=== PATIENT | female | born 1955 | race Caucasian/White ===

== ENCOUNTER → 2017-06-30 12:10 | Outpatient (CLI) | payer OTHER, SELFPAY ==
[2017-06-30 12:59] LABS: Alanine Aminotransferase 48 U/L (12-78); Albumin Level 4.5 gm/dL (3.4-5.0); Albumin/Globulin Ratio 1.1 (1.1-1.8); Alkaline Phosphatase 103 U/L (46-116); Aspartate Amino Transferase 32 U/L (15-37); Bilirubin,Total 0.6 mg/dL (0.2-1.0); Blood Urea Nitrogen 21 mg/dL (7-18); Calcium 10.3 mg/dL (8.5-10.1); Carbon Dioxide 31 mmol/L (21.0-32.0); Chloride 102 mmol/L (98-107); Chol/HDL Ratio 5.5 (1-3.5); Cholesterol 221 mg/dL (140-200); Creatinine,Serum 0.79 mg/dL (0.55-1.02); Estimated Glomerular Filt Rate 74 ml/min (>60); GFR (African American) 89 ML/MIN (>60); Globulin 4.2 gm/dl (1.3-3.2); Glucose 98 mg/dL (74-106); HDL Cholesterol 40 mg/dL (29-89); LDL Cholesterol 144 mg/dL (0-130); Sodium 142 mmol/L (136-145); Total Protein,Serum 8.7 gm/dL (6.4-8.2); Triglycerides 186 mg/dL (30-200); VLDL Cholesterol 37 mg/dL (0-40)
== END ==
PROVIDERS: Visit Provider Internal Medicine Adolescent Medicine
DX: E78.5 Hyperlipidemia, unspecified (principal)
CPT/HCPCS: 36415; 80053; 80061

== ENCOUNTER → 2018-11-20 12:20 | Outpatient (CLI) | payer OTHER, SELFPAY ==
--- NOTE | 2018-11-20 12:24 | XR_ITS ---
PROCEDURE: XR ELBOW RT MIN 3V CLINICAL INDICATION: right radial head fracture follow up Follow-up fracture COMPARISON: XR ELBOW RT MIN 3V from 11/09/2018 FINDINGS: Minimally displaced radial neck and head fracture with intra-articular involvement is once again noted. Posterior splint is present. IMPRESSION: No change radial neck and head fracture with extension into the articular surface Dictated by: Lenny He MD 11/20/2018 12:51 Signed by: <Electronically signed by Lenny He MD in OV> 11/20/2018 12:51
--- NOTE | 2018-11-20 13:42 | XR_ITS ---
PROCEDURE: XR ELBOW RT MIN 3V CLINICAL INDICATION: radial head fracture; out of splint Follow-up radial head fracture COMPARISON: XR ELBOW RT MIN 3V from 11/09/2018 FINDINGS: The splint has been removed. There remains good alignment of the minimally depressed radial head fracture which involves the radial head extending into the as well as the neck of the radius IMPRESSION: Interval removal of the splint otherwise no change in the minimally depressed radial head fracture Dictated by: Lenny He MD 11/20/2018 17:19 Signed by: <Electronically signed by Lenny He MD in OV> 11/20/2018 17:19
== END ==
PROVIDERS: PCP Family Medicine; Visit Provider Orthopaedic Surgery
DX: S52.121A Displaced fracture of head of right radius, initial encounter for closed fracture (principal)
CPT/HCPCS: 73080

== ENCOUNTER → 2018-12-11 12:54 | Outpatient (CLI) | payer OTHER, SELFPAY ==
--- NOTE | 2018-12-11 12:58 | XR_ITS ---
PROCEDURE: XR ELBOW RT MIN 3V CLINICAL INDICATION: follow up right radial head fracture Follow-up fracture, pain COMPARISON: XR ELBOW RT MIN 3V from 11/09/2018 XR ELBOW RT MIN 3V from 11/20/2018 XR ELBOW RT MIN 3V from 11/20/2018 FINDINGS: Minimally depressed fracture involves the radial head with minimal depression of the lateral fracture fragment. Fracture line is somewhat less apparent than when compared to 11/20/2018. No other significant anomalies are evident. Other findings:None. IMPRESSION: Healing minimally depressed fracture of the radial head Dictated by: Lenny He MD 12/11/2018 16:05 Electronically signed by Lenny He MD in OV 12/11/2018 16:05
== END ==
PROVIDERS: PCP Family Medicine; Visit Provider Orthopaedic Surgery
DX: S52.124A Nondisplaced fracture of head of right radius, initial encounter for closed fracture (principal)
CPT/HCPCS: 73080

== ENCOUNTER → 2020-08-07 17:58 | Outpatient (CLI) | payer MEDICARE, OTHER, SELFPAY ==
[2020-08-07 18:32] LABS: Alanine Aminotransferase 48 U/L (12-78); Albumin Level 4.8 g/dl (3.5-5.0); Albumin/Globulin Ratio 1.5 (1.1-1.8); Alkaline Phosphatase 101 U/L (38-126); Anion Gap 12.9 mEq/L (5-15); Aspartate Amino Transferase 48 U/L (14-36); Bilirubin,Total 0.6 mg/dl (0.2-1.3); Blood Urea Nitrogen 26 mg/dl (7-17); Carbon Dioxide 30 mmol/L (22.0-30.0); Chloride 101 mmol/L (98-107); Chol/HDL Ratio 5.4 (1-3.5); Cholesterol 198 mg/dl (140-200); Estimated Glomerular Filt Rate 84 ml/min (>60); GFR (African American) 101 ML/MIN (>60); Globulin 3.1 g/dL (1.3-3.2); Glucose 68 mg/dl (74-100); HDL Cholesterol 37 mg/dl (40-60); Potassium 3.9 mmoL/L (3.5-5.1); Sodium 140 mmol/L (136-145); Total Protein,Serum 7.9 g/dl (6.3-8.2); Triglycerides 260 mg/dl (30-150); VLDL Cholesterol 52 mg/dL (0-40)
[2020-08-07 18:42] LABS: Direct LDL Cholesterol 80.79 mg/dL (100-129)
== END ==
PROVIDERS: Visit Provider Nurse Practitioner Family
DX: Z00.00 Encounter for general adult medical examination without abnormal findings (principal); I10 Essential (primary) hypertension; E78.5 Hyperlipidemia, unspecified
CPT/HCPCS: 80053; 80061

== ENCOUNTER → 2020-11-07 10:13 | Outpatient (CLI) | payer MEDICARE, OTHER, SELFPAY ==
[2020-11-07 11:41] LABS: Alanine Aminotransferase 42 U/L (12-78); Albumin Level 4.5 g/dl (3.5-5.0); Albumin/Globulin Ratio 1.5 (1.1-1.8); Alkaline Phosphatase 98 U/L (38-126); Anion Gap 15.3 mEq/L (5-15); Aspartate Amino Transferase 44 U/L (14-36); Bilirubin,Total 0.8 mg/dl (0.2-1.3); Blood Urea Nitrogen 27 mg/dl (7-17); Calcium 9.6 mg/dl (8.4-10.2); Carbon Dioxide 29 mmol/L (22.0-30.0); Chloride 102 mmol/L (98-107); Chol/HDL Ratio 5.1 (1-3.5); Cholesterol 182 mg/dl (140-200); Estimated Glomerular Filt Rate 63 ml/min (>60); GFR (African American) 76 ML/MIN (>60); Globulin 3.1 g/dL (1.3-3.2); Glucose 88 mg/dl (74-100); HDL Cholesterol 36 mg/dl (40-60); Potassium 4.3 mmoL/L (3.5-5.1); Sodium 142 mmol/L (136-145); Total Protein,Serum 7.6 g/dl (6.3-8.2); Triglycerides 217 mg/dl (30-150); VLDL Cholesterol 43 mg/dL (0-40)
[2020-11-07 11:51] LABS: Direct LDL Cholesterol 85.33 mg/dL (100-129)
== END ==
PROVIDERS: Visit Provider Nurse Practitioner Family
DX: Z00.00 Encounter for general adult medical examination without abnormal findings (principal); I10 Essential (primary) hypertension; E78.5 Hyperlipidemia, unspecified
CPT/HCPCS: 80053; 80061

== ENCOUNTER → 2021-03-11 17:58 | Outpatient (CLI) | payer MEDICARE, OTHER, SELFPAY ==
[2021-03-11 19:26] LABS: Alanine Aminotransferase 39 U/L (12-78); Albumin Level 4.5 g/dl (3.5-5.0); Albumin/Globulin Ratio 1.5 (1.1-1.8); Alkaline Phosphatase 86 U/L (38-126); Anion Gap 11.1 mEq/L (5-15); Aspartate Amino Transferase 43 U/L (14-36); Bilirubin,Total 0.4 mg/dl (0.2-1.3); Blood Urea Nitrogen 27 mg/dl (7-17); Carbon Dioxide 30 mmol/L (22.0-30.0); Chloride 101 mmol/L (98-107); Chol/HDL Ratio 4.1 (1-3.5); Cholesterol 164 mg/dl (140-200); Estimated Glomerular Filt Rate 72 ml/min (>60); GFR (African American) 87 ML/MIN (>60); Glucose 89 mg/dl (74-100); HDL Cholesterol 40 mg/dl (40-60); Potassium 4.1 mmoL/L (3.5-5.1); Sodium 138 mmol/L (136-145); Total Protein,Serum 7.5 g/dl (6.3-8.2); Triglycerides 138 mg/dl (30-150); VLDL Cholesterol 28 mg/dL (0-40)
[2021-03-11 19:37] LABS: Direct LDL Cholesterol 97.66 mg/dL (100-129)
== END ==
PROVIDERS: Visit Provider Nurse Practitioner Family
DX: Z00.00 Encounter for general adult medical examination without abnormal findings (principal); I10 Essential (primary) hypertension; E78.5 Hyperlipidemia, unspecified
CPT/HCPCS: 80053; 80061

== ENCOUNTER → 2022-09-15 15:19 | Outpatient (CLI) | payer MEDICARE, OTHER, SELFPAY ==
--- NOTE | 2022-09-15 15:28 | US_ITS ---
FINAL REPORT CLINICAL HISTORY: ABDOMINAL PAIN-- bladder pain-- hx of renal stones FINDINGS: Limited sonographic images of the urinary bladder were obtained. Prevoid volume is 356 mL. Postvoid volume is 22 mL. There is an echogenic shadowing focus in the dependent portion of the urinary bladder measuring 1 cm in greatest dimension consistent with a stone. IMPRESSION: Stone in the urinary bladder. Postvoid residual of 22 mL. Reviewed, Interpreted and Dictated by Magdaleno Yusuf MD Transcribed by Lynne Hernandez Authenticated and [facility]
--- NOTE | 2022-09-15 15:28 | US_ITS ---
PROCEDURE INFORMATION: Exam: US Retroperitoneal; Complete; Kidneys and Bladder Exam date and time: 09/15/2022 3:58 PM Age: 67 years old Clinical indication: Abdominal pain TECHNIQUE: Imaging protocol: Real-time ultrasound of the retroperitoneum with image documentation. Complete exam focused on the kidneys and bladder. Total images: 50 COMPARISON: US URINARY BLADDER 09/15/2022 3:47 PM FINDINGS: Right kidney: Right kidney measures 8.5 x 4.1 x 6.5 cm. Right renal cyst is present measuring 8 mm. Punctate calcifications noted within the right kidney. Mild right obstructive uropathy. Left kidney: Left kidney measures 9.8 x 4.8 x 5.7 cm. Punctate left renal calcifications present with mild obstructive uropathy. Urinary bladder: Not well seen. IMPRESSION: Bilateral punctate renal calcifications with mild obstructive uropathy.
== END ==
PROVIDERS: PCP Nurse Practitioner Family; Visit Provider Nurse Practitioner Family
DX: R30.0 Dysuria (principal)
CPT/HCPCS: 76770; 76857

== ENCOUNTER 2024-09-17 07:37 | Outpatient (CLI) | payer MEDICARE, OTHER, SELFPAY ==
--- OUTSIDE RECORDS SUMMARY | 2022-10-17 06:55 | XMS_ITS | Continuity of Care Document ---
Author Organization [facility] Address [address] [place] [address] Phone Care Team Providers Care Dairy Farm Operator Name Role Phone Paul MSN, BINDING DYER, Claudia Unavailable Unavai labjenn Allergies, Adverse Reactions, Alerts Substance Reaction Status Criticality No Known Allergies Active No Inform ation Medications Medication Instructions Dosage Effective Dates (start - stop) Status Comments Flomax 0.4 mg capsule take 1 capsule by oral route every day 1/2 hour following the same meal each day 0.4 MG - Active Bactrim DS 800 mg-160 mg tablet take 1 tablet by oral route every 12 hours 1.00 tablet - Active Pyridium 200 mg tablet take 1 tablet by oral route 3 times every day after meals as needed 200 MG - Active atorvastatin 80 mg tablet take 1 tablet by oral route every day 80 MG - Active fenofibrate nanocrystallized 145 mg tablet take 1 tablet by oral route every day 145 MG - Active lisinopril 20 mg-hydrochlorothiazide 25 mg tablet take 1 tablet by oral route every day 1.00 tablet - Active aspirin 81 mg chewable tablet chew 1 tablet by oral route every day 81 MG - Active Multivitamin 50 Plus tablet Take one tablet daily - Active Fish Oil 900 mg-1,400 mg capsule,delayed release Take 2 capsules daily - Active Advance Directives Directive Yes / No Effective Date File Name No Information Encounters Encounter Description Practice Location Reason(s) For Visit Diagnoses Date Provider [facility], [address] [place] [address], [facility], tel:[phone] JULIANO No Information [address] [place], [place], [id number] , . tel:[phone] [facility], [address] [place] [address], [facility], tel:[phone] Renal stoneObstructive uropathy [address] [place], [place], [id number] , [place]. tel:[phone] [facility], [address] [place] [address], [facility], tel:[phone] Abdominal painDysuria [address] [place], [place], [id number] , [place]. tel:[phone] [facility], [address] [place] [address], [facility], tel:[phone] UTI symptoms (chief complaint) Encounter for screening for depressionEncounter for screening examination for other mental health and behavioral disordersBody mass index [BMI] 24.0-24.9, adultEssential (primary) hypertensionHyperlipi demiaDysuriaHematuria , unspecified [address] [place], [place], [id number] , [place]. tel:[phone] Family History Family Member Type Diagnosis Age At Onset Father Problem Hypertension Son Problem Alive and well Father Problem Hyperlipidemia Brother Problem DRUG ADDICTION Mother Problem Hyperlipidemia Maternal grandmother Problem Cardiovascular disea se Son Problem Alive and well Sister Problem Alive and well Son Problem Hypertension Mother Problem Hypertension Daughter Problem Alive and well Immunizations Vaccine Date Status Comments COVID mRNA Bivalent(MOD) administered [place] rce: Other Registry PCV13 administered Source: Other R egistry COVID-19 mRNA (MOD) administered Source: Other Registry Influenza Quad Inj administered Source: O ther Registry COVID-19 mRNA (MOD) administered Source: Other Registry COVID-19 mRNA (MOD) administered Source: Other Registry Zoster Recombinant administered Source: O ther Registry Zoster Recombinant administered Source: O ther Registry Influenza, High Dose administered Source: Other Registry PPV23 administered Source: Other R egistry Hep A, adult administered Source: Other R egistry Tdap, Adsorbed administered Source: Other Registry Hep A, adult administered Source: Other R egistry Td (adult), adsorbed administered Source: Other Registry Payers Payer name Insurance type Covered green party ID Authoriza tiubaldo(s) Hch- Medicare MB [id number] Social History Type Description Quantity Date Captured Comments Alcohol Use Details Unknown Caffeine Use Details Unknown Tobacco Use Status No Information Smoking Status No Information Sex Female Sexual Orientation Straight or heterosexual Aug Gender Identity Female Chief Complaint And Reason For Visit No Information Plan Of Treatment Date Type Action Status Goal Pneumococcal vaccine due Goal Follow up Plan f or abnormal BMI (Less than 18.5, greater than 25). Due on due Goal Generalized Anxi ety Disorder - 7 (MARNI-7). Due on due Goal Influenza vaccine. Due on Oc due Goal CT-Colonography. Due on due Goal FOBT. Due on due Goal FIT. Due on due Goal FIT-DNA. Due on due Goal Diabetes screening. Due on due Goal Tobacco Use Screening. Due o n due Goal Unhealthy drug use screening due Goal Obtain Height, Weight, and B OK. Due on due Goal Tobacco Use Cessation Counse ling. Due on due Goal Colonoscopy. Due on due Goal Depression screening. Due on due Goal Vitamin D. Due on due Goal Vitamin B12. Due on due Goal Drug Abuse Scree manolo Test (DAST-10). Due on due Goal Hepatitis C Screening. Due o n due Goal CMP. Due on due Goal DEXA scan. Due on due Goal Mammogram. Due on due Goal TSH. Due on due Goal CBC. Due on due Goal Lipid panel. Due on due Goal ECG. Due on due Goal Urinalysis due Goal Obtain blood Pressure. Due o n due Goal Pneumococcal vaccine due Goal FIT-DNA. Due on due Goal Hepatitis C Screening. Due o n due Goal Tobacco Use Screening. Due o n due Goal Unhealthy drug use screening due Goal Colonoscopy. Due on due Goal CT-Colonography. Due on due Goal TSH. Due on due Goal Follow up Plan f or abnormal BMI (Less than 18.5, greater than 25). Due on due Goal Vitamin D. Due on due Goal Tobacco Use Cessation Counse ling. Due on due Goal CMP. Due on due Goal CBC. Due on due Goal Generalized Anxi ety Disorder - 7 (MARNI-7). Due on due Goal Drug Abuse Scree manolo Test (DAST-10). Due on due Goal Depression screening. Due on due Goal Lipid panel. Due on due Goal Mammogram. Due on due Goal Obtain Height, Weight, and B OK. Due on due Goal DEXA scan. Due on due Goal FOBT. Due on due Goal Influenza vaccine. Due on Oc due Goal Vitamin B12. Due on due Goal FIT. Due on due Goal Diabetes screening. Due on due Goal Obtain blood Pressure. Due o n due Goal Urinalysis due Goal ECG. Due on due Goal Diabetes screening. Due on due Goal CMP. Due on due Goal Pneumococcal vaccine due Goal Colonoscopy. Due on due Goal Depression screening. Due on due Goal CT-Colonography. Due on due Goal Hepatitis C Screening. Due o n due Goal FIT-DNA. Due on due Goal Tobacco Use Cessation Counse ling. Due on due Goal Vitamin D. Due on due Goal Unhealthy drug use screening due Goal Mammogram. Due on due Goal Tobacco Use Screening. Due o n due Goal CBC. Due on due Goal Obtain Height, Weight, and B OK. Due on due Goal DEXA scan. Due on due Goal Generalized Anxi ety Disorder - 7 (MARNI-7). Due on due Goal Vitamin B12. Due on due Goal TSH. Due on due Goal Follow up Plan f or abnormal BMI (Less than 18.5, greater than 25). Due on due Goal FOBT. Due on due Goal FIT. Due on due Goal Lipid panel. Due on due Goal Influenza vaccine. Due on due Goal Drug Abuse Scree manolo Test (DAST-10). Due on due Goal Urinalysis due Goal Obtain blood Pressure. Due o n due Goal ECG. Due on due Goal Urinalysis due Goal Obtain blood Pressure. Due o n due Goal ECG. Due on due Goal Diabetes screening. Due on due Goal CMP. Due on due Goal Pneumococcal vaccine due Goal Colonoscopy. Due on due Goal Depression screening. Due on due Goal CT-Colonography. Due on due Goal Hepatitis C Screening. Due o n due Goal FIT-DNA. Due on due Goal Tobacco Use Cessation Counse ling. Due on due Goal Vitamin D. Due on due Goal Unhealthy drug use screening due Goal Mammogram. Due on due Goal Tobacco Use Screening. Due o n due Goal CBC. Due on due Goal Obtain Height, Weight, and B OK. Due on due Goal DEXA scan. Due on due Goal Generalized Anxi ety Disorder - 7 (MARNI-7). Due on due Goal Vitamin B12. Due on due Goal TSH. Due on due Goal Follow up Plan f or abnormal BMI (Less than 18.5, greater than 25). Due on due Goal FOBT. Due on due Goal FIT. Due on due Goal Lipid panel. Due on 023 due Goal Influenza vaccine. Due on Oc due Goal Drug Abuse Scree manolo Test (DAST-10). Due on due Goal Lifestyle education regardin g diet completed Referral Referred To: Kyle Meza [address] [place], [phone] Ordered: Referrals: Urology. Kyle Meza. Location: [facility]. Evaluate and treat Appointment date/timeframe: 09/30/2022 ordered History Of Present Illness Encounter Date Complaint History Of Prese nt Illness UTI symptoms Devi is a new p t here in the clinic today. She states she has had urinary frequency, sharp shooting bladder pains in the mid suprapubic area x 1 week. She reports she has had hx of a kidney stone in the past requiring a stent. She states this feels like it is at the base of her bladder. Denies flank pain, denies nvd. Denies fever, chills.She has not taken anything for thisHematuria on in house UA in office today Instructions Date Instruction Additional Infor lori Physical activity as tolerated. Try to engage in some form of moderate physical activity for 30 minutes most days of the week. May modify activity as needed to reduce discomfort. Try to achieve/maintain a healthy body weight to reduce strain on musculoskeletal system. Verbalizes an understanding. Related to Body mass index [BMI] 24.0-24.9, adult Patient currently do ing well. BP in goal range. No medication changes. Patient instructed to follow a low salt diet, continuing taking blood pressure medications as prescribed. Keep routine follow up with clinic. Related to Essential (primary) hypertension Low fat, low cholest jocy diet. Avoid fatty, fried, and greasy foods. Physical activity as tolerated. Counseled on risks of associated comorbidities, such as heart disease and stroke. Encouraged avoidance of tobacco products. Related to Hyperlipidemia Drink plenty of wate r. Avoid chocolate, caffeine, carbonation, or citrus. Take all medications as instructed. Take antibiotics until complete. Pyridium will cause bodily secretions (tears, urine) to be orange, this is normal. May take tylenol for pain, as per package instructions.If pain becomes worse, or you are unable to urinate, go to the ER. If symptoms contiue, go to Urology. Related to Hematuria, unspecified Take all medications as prescribed. Drink plenty of clear fluids. Counseled on appropriate hygiene to reduce risk of future UTI's. Verbalized an understanding of all. Related to Dysuria Giving encouragement to exercise Related to Body mass index [BMI] 24.0-24.9, adult Lifestyle education regarding di et Related to Body mass index [BMI] 24.0-24.9, adult Dietary management e ducation, guidance, and counseling (procedure) Related to Essential HTN Assessments Type Assessment Date No Information
--- OUTSIDE RECORDS SUMMARY | 2024-06-29 17:30 | XMS_ITS ---
Author Organization [facility] Address [address] [place] [address] [facility] [address] [place] [address] Care Team Providers Care Official Court Reporter Name Role Phone Checo Blandon Primary Care Provider McNees, Melissa Unavailable [phone] Checo Blandon Unavailable Unavailable Migration, Provider Unavailable Unavailable REASON FOR VISIT [facility] Conversion Encounter Medications Medication SIG (Take, Route, Frequency, Duration) Notes Start Date End Date Status Crestor 40 MG 1 tab(s) orally once a day for 90 days 03/13/2023 Active Fenofibrate 160 MG 1 tab(s) orally once a day for 90 days Active amLODIPine Besylate 5 MG 1 tab(s) orally once a day for 90 days Active valACYclovir HCl 1 GM 2 tab(s) at onset of symptoms and take 2 tablets 12 hours later (no more than 4 tabs per outbreak) orally for 30 day(s) Active Lisinopril-hydroCHLOR Othiazide 20-25 MG 1 tab(s) orally once a day for 90 days Active Multivitamin MULTIPLE VITAMINS 1 CAP(S) ORALLY ONCE A DAY for 30 DAY(S) *Please review and pick correct strength-formulatio n from IMASTE options. If intended option is not shown, discontinue and re-order from Quick Search* Active Caltrate 600+D Plus Minerals 600 MG-20 MCG 1 TAB(S) ORALLY 2 TIMES A DAY *Please review and pick correct strength-formulatio n from [facility] options. If intended option is not shown, discontinue and re-order from Quick Search* Active Aspirin 81 MG 1 TAB(S) ORALLY ONCE A DAY *Please review and pick correct strength-formulatio n from Medispan options. If intended option is not shown, discontinue and re-order from Quick Search* Active Fish Oil 1200 MG 2 cap(s) orally daily Active Encounters Encounter Location Date Provider Diagnosis [facility] [address] [place], [place] [address] 06/29/2024 Provider Migration Plan Of Treatment Medication Medication Name Sig Start Date Stop Date Notes Fenofibrate 160 MG 1 tab(s) orally once a day for 90 days amLODIPine Besylate 5 MG 1 tab(s) orally once a day for 90 days valACYclovir HCl 1 GM 2 tab(s) at onset of symptoms and take 2 tablets 12 hours later (no more than 4 tabs per outbreak) orally for 30 day(s) Lisinopril-hydroCHLOROthiazi de 20-25 MG 1 tab(s) orally once a day for 90 days Next Appt Details Provider Name:Melissa Mcfarlane, 02/28/2025 09:45:00 AM, [address] [place] [address], [phone], Progress Notes * Devi TOVARDOB: (69 yo F)Acc No.[id number]:06/29/2024 Patient: Mary TISHAEVIDevi Provider: Malissa cortes Migration :1955 A ge:69 Y S ex:Female Date:06/29/2024 Address:[address] [place] [address], [place], [id number] Pcp:Checo Blandon Subjective: * Chief Complaints: * 1 . Multum To Medispan Conversion Encounter. * Medical History: * Medications: T aking Caltrate 600+D Plus Minerals 600 MG-20 MCG TABLET 1 TAB(S) ORALLY 2 TIMES A DAY , Notes to Pharmacist: *Please review and pick correct strength-formulation from Medispan options. If intended option is not shown, discontinue and re-order from Quick Search*, Taking Fish Oil 1200 MG Capsule 2 cap(s) orally daily , Taking Aspirin 81 MG TABLET 1 TAB(S) ORALLY ONCE A DAY , Notes to Pharmacist: *Please review and pick correct strength-formulation from Medispan options. If intended option is not shown, discontinue and re-order from Quick Search*, Taking Multivitamin MULTIPLE VITAMINS CAPSULE 1 CAP(S) ORALLY ONCE A DAY , Notes to Pharmacist: *Please review and pick correct strength-formulation from Medispan options. If intended option is not shown, discontinue and re-order from Quick Search*, Taking Crestor 40 MG Tablet 1 tab(s) orally once a day Objective: * Vitals: Assessment: Plan: * Treatment: * * Electronic signature of Wood carmen Migration on 09/17/2024 at 07:39 AM EDT Sign off status: Pending * Provider: Malissa cortes Migration Date: 06/29/2024 Generated for Patti weston/Dina/Zeina on: 09/17/2024 07:39 AM EDT
--- OUTSIDE RECORDS SUMMARY | 2024-09-13 05:00 | XMS_ITS ---
Author Organization [facility] Address [address] [facility] [address] [place] [address] Care Team Providers Care Skating Rink Manager Name Role Phone Checo Blandon Primary Care Provider [phone] McNees, Melissa Unavailable [phone] Checo Blandon Unavailable Unavailable Allergies No Known Allergies Results Component Value Reference Range Notes LIPID PANEL, STANDARD (7600) Reviewed date:09/16/2024 02:23:10 PM Interpretation: Performing Lab:[facility]ron [address] [facility] Hospital[facility]ron [id number] Manuel Montoya Notes/Report: NON-FASTING; NON-FASTING FASTING:YES FASTING: YES CHOLESTEROL, TOTAL 162 <200 mg/dL HDL CHOLESTEROL 39 > OR = 50 mg/dL TRIGLYCERIDES 189 <150 mg/dL LDL-CHOLESTEROL 95 Reference range: <100 Desirable range <100 mg/dL for primary prevention; <70 mg/dL for patients with CHD or diabetic patients with > or = 2 CHD risk factors. LDL-C is now calculated using the Leonor calculation, which is a validated novel method providing better accuracy than the Friedewald equation in the estimation of LDL-C. Lux BURGOS et al. DORIS. 2013;310(19): 1710-5498 (http://[employer].Hyperoptic.Showroomprive/faq/LUY822) CHOL/HDLC RATIO 4.2 <5.0 (calc) NON HDL CHOLESTEROL 123 <130 mg/dL (calc) For patients with diabetes plus 1 major ASCVD risk factor, treating to a non-HDL-C goal of <100 mg/dL (LDL-C of <70 mg/dL) is considered a therapeutic option. COMPREHENSIVE METABOLIC KARRIE Dowling ([id number]) Reviewed date:09/16/2024 02:23:11 PM Interpretation: Performing Lab:[facility], [facility]-[address], Myron [id number] Manuel Montoya Notes/Report: NON-FASTING; NON-FASTING FASTING:YES FASTING: YES GLUCOSE 91 65-99 mg/dL Fasting reference interval UREA NITROGEN (BUN) 31 7-25 mg/dL CREATININE 0.87 0.60-1.00 mg/dL EGFR 72 > OR = 60 mL/min/1.73m2 BUN/CREATININE RATIO 36 6-22 (calc) SODIUM 141 135-146 mmol/L POTASSIUM 4.0 3.5-5.3 mmol/L CHLORIDE 104 98-110 mmol/L CARBON DIOXIDE 27 20-32 mmol/L CALCIUM 10.1 8.6-10.4 mg/dL PROTEIN, TOTAL 7.6 6.1-8.1 g/dL ALBUMIN 4.7 3.6-5.1 g/dL GLOBULIN 2.9 1.9-3.7 g/dL (calc) ALBUMIN/GLOBULIN RATIO 1.6 1.0-2.5 (calc) BILIRUBIN, TOTAL 0.4 0.2-1.2 mg/dL ALKALINE PHOSPHATASE 73 37-153 U/L AST 35 10-35 U/L ALT 42 6-29 U/L Reason For Referral Reason Coronary CTA Diagnosis 1 Family history of co ronary arteriosclerosis (Z82.49) Referral Organization [facility] Referring Provider First Name Melissa Referring Provider Last Name Prieto [facility]erring Provider [facility] Referred Organization [facility] Referred Address [address], [place], [place],[address],[place] Referred Provider Specialty Diagnostic R adiology General Notes sent to [facility] to Damien pal Nickie 09/13/2024 11:10:07 AM > Referral Priority Routine REASON FOR VISIT med ck-needs refills on all meds, fasting Medications Medication SIG (Take, Route, Frequency, Duration) Notes Start Date End Date Status Caltrate 600+D Plus Minerals 600 MG-20 MCG 1 TAB(S) ORALLY 2 TIMES A DAY Active Aspirin 81 MG 1 TAB(S) ORALLY ONCE A DAY Active Fish Oil 1200 MG 2 cap(s) orally daily Active Multivitamin MULTIPLE VITAMINS 1 CAP(S) ORALLY ONCE A DAY for 30 DAY(S) Active valACYclovir HCl 1 GM 2 tab(s) at onset of symptoms and take 2 tablets 12 hours later (no more than 4 tabs per outbreak) orally for 30 day(s) Active Atorvastatin Calcium 80 MG 1 tablet Oral ly at bedtime for 90 days 09/13/2024 Active Lisinopril-hydroCHLOROthiaz bhanu 20-25 MG 1 tab(s) orally once a day for 90 days Active Fenofibrate 160 MG 1 tab(s) orally once a day for 90 days Active amLODIPine Besylate 5 MG 1 tab(s) orally once a day for 90 days Active Social History Tobacco Use: Social History Observation Description Date Details (start date - stop date) Never Smoker NA - NA Smoking: Question Answer Notes Are you a: nonsmoker Vital Signs BMI 27.09 kg/m2 09/13/2024 Weight 162.8 lbs 09/13/2024 Height 65 in 09/13/2024 Heart Rate 74 /min 09/13/2024 Blood pressure systolic 122 mm Hg 09/14/19 Blood pressure diastolic 84 mm Hg 025 Temperature 97.6 degrees Fahrenheit 09/14/19 Encounters Encounter Location Date Provider Diagnosis [address] [address] 09/13/2024 Melissa Moreau Hyperlipemia, idiopa thic familial E78.5 ; Hypertension, essential I10 ; Body mass index [BMI] 27.0-27.9, adult Z68.27 ; Family history of coronary arteriosclerosis Z82.49 and At risk for heart disease Z91.89 Assessments Encounter Date Diagnosis (ICD Code) Assessment Notes Treatment Notes Treatment Clinical Notes Section Notes 09/13/2024 Hyperlipemia, 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 Will check fasting lipid panel today and treat as indicated 09/13/2024 Hypertension, essential (ICD-10 - I10) Blood pressure at goal. No changes made today 09/13/2024 Body mass index [BMI] 27.0-27.9, adult (ICD-10 - Z68.27) BMI stable and acceptable 09/13/2024 Family history of coronary arteriosclerosis (ICD-10 - Z82.49) Parents were smokers, and she has never smoked. Reassurance provided. Does not have any exertional symptoms. Maximize LDL control. Continue aspirin. Will attempt to PA CCTA but explained insurance may not cover. 09/13/2024 At risk for heart disease (ICD-10 - Z91.89) HTN HLD Family history Plan Of Treatment Medication Medication Name Sig Start Date Stop Date Notes Atorvastatin Calcium 80 MG 1 tablet Oral ly at bedtime for 90 days 09/13/2024 Lisinopril-hydroCHLOROthiazi de 20-25 MG 1 tab(s) orally once a day for 90 days Rosuvastatin Calcium 40 MG Take 1 tablet by mouth once daily for 90 days Fenofibrate 160 MG 1 tab(s) orally once a day for 90 days amLODIPine Besylate 5 MG 1 tab(s) orally once a day for 90 days Treatment Notes Assessment Notes Hyperlipemia, idiopathic familial Change back to atorvastatin due to myalgias on rosuvastin. Will check fasting lipid panel today and treat as indicated Hypertension, essential Blood pressure a t goal. No changes made today Body mass index [BMI] 27.0-27.9, adult B AZ stable and acceptable Family history of coronary arteriosclero sis Parents were smokers, and she has never smoked. Reassurance provided. Does not have any exertional symptoms. Maximize LDL control. Continue aspirin. Will attempt to PA CCTA but explained insurance may not cover. At risk for heart disease HTN HLD Family history Pending Test Test Name Order Date CTA : Coronary 09/13/2024 Referrals Referral Date Details 09/13/2024 09/13/2024, Coronary CTA, [address] [place], [address], Next Appt Details Follow Up: 6 Months,Jihan hooker son: Provider Name:Melissa Mcfarlane, 02/28/2025 09:45:00 AM, [address] [facility], [facility], [place], [address], Progress Notes * Yoselyn TOVARB: 5 (69 yo F)Acc No.[id number]:09/13/2024 Progress Notes Patient: Devi NESS Provider: Domitila Moreau APRN :1955 A ge:69 Y S ex:Female Date:09/13/2024 Address:[facility] [address], [place], [id number] Pcp:Checo Blandon Subjective: * Chief Complaints: * 1 . Med ck-needs refills on all meds. 2. Fasting. * HPI: C ardiology: Denies : chest pain. D enies : shortness of breath. D enies : dizziness. D enies : palpitations. D enies : leg edema. D enies : fatigue. D enies : cyanosis. D enies : diaphoresis. Presents for routine follow up on hypertension and hyperlipidemia. Checks blood pressure at home every Monday, Log 110-120's/60-70's. This morning 127/80. No CV symptoms but is concerned about family h/o CAD with both parents dying around age 70. Would like cardiac imaging. H LD- haivng myalgias on rosuvastatin, did better on atorvastatin 80mg. Denies exertional symptoms. No other concerns. Mammogram due, last was normal. Colonoscopy in 2020, repeat in 5 years. Preumovax, Prevnar, COVID-19 and shingles vaccines UTD. Pap 05/19 normal, no further needed. DEXA- osteopenia 2022- on caltrate D. * ROS: A LLERGY: Reviewed, No Symptoms Reported: Y es. F UNCTIONAL STATUS: ADLS I ndependent for all ADL/IADL. R ESPIRATORY: Reviewed, No Symptoms Reported: Y es. C ARDIOLOGY: Reviewed, No Symptoms Reported: Y es. C ONSTITUTIONAL: no L oss of appetite. n o F ever. D ERMATOLOGY: no R paul. G ASTROENTEROLOGY: Reviewed, No Symptoms Reported: Y es. H EMATOLOGY/LYMPH: no S wollen glands. n o E asy bruising. ? N EUROLOGY: Reviewed, No Symptoms Reported: Y es. P SYCHOLOGY: Reviewed, No Symptoms Reported: Y es. U ROLOGY: Reviewed, No Symptoms Reported: Y es. * Medical History: H TN, HLD, Skin ca. * Surgical History: h ysterectomy , appendectomy , breast reduction , heel spurs , left hip fx repair , left wrist fx repair , right hand , lasik , x 2020 c-scope- repeat in 5 years , mammogram 04/2020 normal , cataract removal . * Hospitalization/Major Diagno stic Procedure: suzy emanuel . * Family History: F ather: , diagnosed with Hypertension, Heart Disease. M other: , diagnosed with Hypertension, Heart Disease. P aternal Grand Father: . P aternal Grand Mother: . M aternal Grand Father: . M aternal Grand Mother: . S ibjaya: alive. Fahad angela: alive, diagnosed with Hypertension. 1 brother(s) , 1 sister(s) - healthy. 2 son(s) , 1 daughter(s) - healthy. . * Social History: S moking A re you a: n onsmoker. R ecreational drug use: no. Exercise: yes, farm. Home smoke detector use: yes. Caffeine: no. Living Will: No. Alcohol: no. Sexually active: no. Travel outside [place]: no. Occupation: retired. * Medications: T aking Caltrate 600+D Plus Minerals 600 MG-20 MCG TABLET 1 TAB(S) ORALLY 2 TIMES A DAY , Taking Fish Oil 1200 MG Capsule 2 cap(s) orally daily , Taking Aspirin 81 MG TABLET 1 TAB(S) ORALLY ONCE A DAY , Taking Multivitamin MULTIPLE VITAMINS CAPSULE 1 CAP(S) ORALLY ONCE A DAY , Taking Fenofibrate 160 MG Tablet 1 tab(s) orally once a day , Taking valACYclovir HCl 1 GM Tablet 2 tab(s) at onset of symptoms and take 2 tablets 12 hours later (no more than 4 tabs per outbreak) orally , Taking Rosuvastatin Calcium 40 MG Tablet Take 1 tablet by mouth once daily for 90 days , Taking amLODIPine Besylate 5 MG Tablet 1 tab(s) orally once a day , Taking Lisinopril-hydroCHLOROthiazide 20-25 MG Tablet 1 tab(s) orally once a day , Medication List reviewed and reconciled with the patient * Allergies: N .K.D.A. Objective: * Vitals: N urse: jl, Pain: 0, Temp: 97.6, RR: 16, HR: 74, BP: 122/84, Ht: 65, Wt: 162.8, BMI:27.09. * Examination: G eneral Examination: General P leasant and Cooperative, NAD on RA,. Chest: n ormal shape and expansion. Heart: R RR, No m/r/g/h, Nl S1S2, No JVD, 2(+) symmetric pulses, No edema,. HEENT: u nremarkable. Lungs: L CTAB, No wheezes, crackles or rhonchi, Good air movement,. Abdomen: S oft, NTND, BSNA, No organomegaly or peritoneal signs.. Neurologic Exam: normal sensation, strength, Alert and oriented x 3. Skin: w ithout acute rashes. Peripheral pulses: n ormal (2+) bilaterally. Extremities: n o edema. neck Supple without Meningeal Signs, No LAD, No JVD, No Goiter, No Bruit,. Psych N ormal Mood/Affect. Assessment: * Assessment: 1. H yperlipemia, idiopathic familial - E78.5 (Primary) 2 . H ypertension, essential - I10 3 . B maria guadalupe mass index [BMI] 27.0-27.9, adult - Z68.27 ?4. F amily history of coronary arteriosclerosis - Z82.49 5 . A t risk for heart disease - Z91.89 Plan: * Treatment: Value Reference Range T RIGLYCERIDES 189 H <150 - mg/dL * C HOLESTEROL, TOTAL 162 <200 - mg/dL * H DL CHOLESTEROL 39 L > OR = 50 - mg/dL * L DL-CHOLESTEROL 95 - mg/dL (calc) * C HOL/HDLC RATIO 4.2 <5.0 - (calc) * N ON HDL CHOLESTEROL 123 <130 - mg/dL (calc) * Melissa Moreau 09/17/19 25 11:15:21 AM EDT > triglycerides a little high, low saturated fat diet, otherwise labs look goodThis lab was reviewed by Tim Rich on 09/16/2024 at 14:23 PM EDT ?LAB: COMPREHENSIVE METABOLIC PANEL ([id number])* Value Reference Range G LUCOSE 91 65-99 - mg/dL * U JIHAN NITROGEN (BUN) 31 H 7-25 - mg/dL * C REATININE 0.87 0.60-1.00 - mg/dL * B UN/CREATININE RATIO 36 H 6-22 - (calc) * S ODIUM 141 135-146 - mmol/L * P OTASSIUM 4.0 3.5-5.3 - mmol/L * C HLORIDE 104 98-110 - mmol/L * C ARBON DIOXIDE 27 20-32 - mmol/L * C ALCIUM 10.1 8.6-10.4 - mg/dL * P ROTEIN, TOTAL 7.6 6.1-8.1 - g/dL * A LBUMIN 4.7 3.6-5.1 - g/dL * G LOBULIN 2.9 1.9-3.7 - g/dL (calc ) * A LBUMIN/GLOBULIN RATIO 1.6 1.0-2.5 - (calc) * B ILIRUBIN, TOTAL 0.4 0.2-1.2 - mg/dL * A LKALINE PHOSPHATASE 73 37-153 - U/L * A ST 35 10-35 - U/L * A LT 42 H 6-29 - U/L * E GFR 72 > OR = 60 - mL/min/1 .73m2 * Melissa Moreau 09/17/19 25 11:15:21 AM EDT > triglycerides a little high, low saturated fat diet, otherwise labs look goodThis lab was reviewed by Tim Rich on 09/16/2024 at 14:23 PM EDT Notes: Change back to atorvastatin due to myalgias on rosuvastin. Will check fasting lipid panel today and treat as indicated??2.?Hypertension, essential? Refill Lisinopril-hydroCHLOROthiazide Tablet, 20-25 MG, 1 tab(s), orally, once a day, 90 days, 90, Refills 1;?Refill amLODIPine Besylate Tablet, 5 MG, 1 tab(s), orally, once a day, 90 days, 90, Refills 1.?? Notes: Blood pressure at goal. No changes made today??3.?Body mass index [BMI] 27.0-27.9, adult? Notes: BMI stable and acceptable??4.?Family history of coronary arteriosclerosis ?Imaging: CTA : Coronary* Notes: Parents were smokers, and she has never smoked. Reassurance provided. Does not have any exertional symptoms. Maximize LDL control. Continue aspirin. Will attempt to PA CCTA but explained insurance may not cover.? Referral To: ?Reason:CoronaryCTA 5.?At risk for heart disease?Imaging: CTA : Coronary* Notes: HTN HLD Family history?? * Follow Up: 6 Months,prn * * Sign off status: Completed true * Provider: Domitila Moreau APRN Date: 09/13/2024 Generated for Patti weston/Dina/Zeina on: 09/17/2024 07:40 AM EDT History and Physical Notes * HPI (History of Present Illness) Category Sub-Category Detail Notes Category Not es Cardiology shortness of breath Presents for routine follow up on hypertension and hyperlipidemia. Checks blood pressure at home every Monday, Log 110-120's/60-70's. This morning 127/80. No CV symptoms but is concerned about family h/o CAD with both parents dying around age 70. Would like cardiac imaging. HLD- haivng myalgias on rosuvastatin, did better on atorvastatin 80mg. Denies exertional symptoms. No other concerns. Mammogram due, last was normal. Colonoscopy in 2020, repeat in 5 years. Preumovax, Prevnar, COVID-19 and shingles vaccines UTD. Pap 05/19 normal, no further needed. DEXA- osteopenia 2022- on caltrate D chest pain palpitations dizziness leg edema fatigue cyanosis diaphoresis Examination Category Sub-Category Detail Notes Category Not es General Examination HEENT: unremarkable Heart: RRR, No m/r/g/h, Nl S1S2, No JVD, 2(+) symmetric pulses, No edema, Lungs: LCTAB, No wheezes, c rackles or rhonchi, Good air movement, Abdomen: Soft, NTND, BSNA, No organomegaly or peritoneal signs. Extremities: no edema Skin: without acute rashes Neurologic Exam: normal sensation, st rength, Alert and oriented x 3 Peripheral pulses: normal (2+) bilatera lly Chest: normal shape and exp ansion neck Supple without Menin geal Signs, No LAD, No JVD, No Goiter, No Bruit, General Pleasant and Coopera tive, NAD on RA, Psych Normal Mood/Affect Consultation Request Notes Referral Date Referring Provider Referred Provider Not es 09/13/2024 Melissa Moerau , Coronary CTA
--- OUTSIDE RECORDS SUMMARY | 2024-09-17 07:40 | XMS_ITS | Data Portability ---
Author Organization [facility] SARIKA Clark SAVOY CLOSED Address [address] [place] [address] Assessment No assessment recorded. Plan of Treatment Reminders Order Date Submit Date Provider Last Modified By Organization Details Last Modified Time Details Appointments None recorded. Lab urinalysis panel, auto [id number] [place] [address] [facility], [address], [place], [address], 3 10:29:55 Referral None recorded. Procedures None recorded. Surgeries None recorded. Imaging CT, abdomen + pelvis, w/o contrast 2022 023 [facility], [address] [facility] [address], [place], [address], 3 16:57:10 Medication Orders None recorded. Patient TargetsNo targets recorded. Patient InstructionsNo instructions recorded. Reason for Referral None Reported. Results Created Date Observation Date Name Description Value Unit Range Abnormal Flag Note LastModifiedBy Organization Detail LastModifiedTime 09/29/1909/28/2022 urina lysis panel , auto Unknown Analyte Clean Catch Not Available [facility] [address], [place], [address], 09/28/2022 15:59:52 09/29/19 23 09/28/2022 urina lysis panel , auto Unknown Analyte Yellow Not Available [facility] [address], [place], [address], 09/28/2022 15:59:52 09/29/19 23 09/28/2022 urina lysis panel , auto Unknown Analyte Clear Not Available [facility] [address], [place], [address], 09/28/2022 15:59:52 09/29/19 23 09/28/2022 urina lysis panel , auto Unknown Analyte 1.020 Not Available [facility] [address], [place], [address], 09/28/2022 15:59:52 09/29/19 23 09/28/2022 urina lysis panel , auto Unknown Analyte 1.003- 1.035 Not Available [facility] [address], [place], [address], 09/28/2022 15:59:52 09/29/19 23 09/28/2022 urina lysis panel , auto Unknown Analyte 5.0 Not Available [facility] [address], [place], [address], 09/28/2022 15:59:52 09/29/19 23 09/28/2022 urina lysis panel , auto Unknown Analyte 5.0-8. 0 Not Available [facility] [address], [place], [address], 09/28/2022 15:59:52 09/29/19 23 09/28/2022 urina lysis panel , auto Unknown Analyte 500 Molly/ul (++) Not Available [facility] [address], [place], [address], 09/28/2022 15:59:52 09/29/19 23 09/28/2022 urina lysis panel , auto Unknown Analyte Negati ve Not Available [facility] [address], [place], [address], 09/28/2022 15:59:52 09/29/19 23 09/28/2022 urina lysis panel , auto Unknown Analyte Negati ve Not Available [facility] [address], [place], [address], 09/28/2022 15:59:52 09/29/19 23 09/28/2022 urina lysis panel , auto Unknown Analyte Negati ve Not Available [facility] [address], [place], [address], 09/28/2022 15:59:52 09/29/19 23 09/28/2022 urina lysis panel , auto Unknown Analyte Negati ve Not Available [facility] [address], [place], [address], 09/28/2022 15:59:52 09/29/19 23 09/28/2022 urina lysis panel , auto Unknown Analyte Negati ve Not Available [facility] [address], [place], [address], 09/28/2022 15:59:52 09/29/19 23 09/28/2022 urina lysis panel , auto Unknown Analyte Normal Not Available [facility] [address], [place], [address], 09/28/2022 15:59:52 09/29/19 23 09/28/2022 urina lysis panel , auto Unknown Analyte Normal Not Available [facility] [address], [place], [address], 09/28/2022 15:59:52 09/29/19 23 09/28/2022 urina lysis panel , auto Unknown Analyte Negati ve Not Available [facility] [address], [place], [address], 09/28/2022 15:59:52 09/29/19 23 09/28/2022 urina lysis panel , auto Unknown Analyte Negati ve Not Available [facility] [address], [place], [address], 09/28/2022 15:59:52 09/29/19 23 09/28/2022 urina lysis panel , auto Unknown Analyte Normal Not Available [facility] [address], [place], [address], 09/28/2022 15:59:52 09/29/19 23 09/28/2022 urina lysis panel , auto Unknown Analyte Normal 1 mg/dl Not Available [facility] [address], [place], [address], 09/28/2022 15:59:52 09/29/19 23 09/28/2022 urina lysis panel , auto Unknown Analyte Negati ve Not Available [facility] [address], [place], [address], 09/28/2022 15:59:52 09/29/19 23 09/28/2022 urina lysis panel , auto Unknown Analyte Negati ve Not Available [facility] [address], [place], [address], 09/28/2022 15:59:52 09/29/19 23 09/28/2022 urina lysis panel , auto Unknown Analyte 50 Sammi/ul Not Available [facility] [address], [place], [address], 09/28/2022 15:59:52 09/29/19 23 09/28/2022 urina lysis panel , auto Unknown Analyte Negati ve Not Available [facility] [address], [place], [address], 09/28/2022 15:59:52 10/04/19 23 10/03/2022 CT, abdom en + pelvi s, w/o contr ast [place] [address] [place] [address] Patien t Name: SAMUEL ANN Patien t : [phone] Patien t Orderi ng Provid er: JAKE ORTIZ EXAM DATE: 2022 EXAM: CT R/O KIDNEY STONES (A/P W/O) CLINIC AL INFORM ATION: Suprap ubic pain and pressu re. TECHNI QUE: Multip le axial CT images of the abdome n and pelvis were obtain ed withou t inject ion of IV contra st using the urinar y stone protoc ol. COMPAR SUGAR: None. FINDIN GS ON CT ABDOME N: LOWER THORAX : Lung bases are clear. No obviou s cardia c abnorm ality URINAR Y TRACT: Mild scarri ng of the right kidney is seen. 2-5 mm nonobs tructi ng stones are seen in both renal collec ting system s. No stone is seen in the ureter s or urinar y bladde r. OTHER UPPER ABDOMI NAL ORGANS : Liver, gallbl adder, spleen , pancre as, and adrena ls are normal within the limits on interp retati on impose d by the absenc e of IV contra st. BOWEL AND MESENT SAMMI: Stomac h, small bowel and colon are normal . No mesent susan lympha denopa thy or perito shiva free fluid. RETROP ERITON EUM:Li mited evalua tion due to absenc e of IV contra st. Aorta shows athero sclero tic calcif icatio ns with normal aortic calibe r. IVC and branch es are normal . No retrop eriton eal lympha denopa thy. BODY WALL AND MUSCUL OSKELE MELY STRUCT URES: Degene rative change s of the lumbar spine are noted. Anteri or abdomi nal wall is normal . FINDIN GS ON CT PELVIS : PELVIC CAVITY : Urinar y bladde r and rectos igmoid are normal . Uterus is not presen t. Ovarie s are not visual ized. No pelvic or inguin al lympha denopa thy, mass or fluid. MUSCUL OSKELE MELY STRUCT URES: Normal . COMBIN ED IMPRES KYA: 1. Nonobs tructi ng bilate ral renal stones . 2. Right renal scarri ng consis tent with reflux nephro humera. 3. No other signif icant abnorm ality is seen. Interp reted By: Radha Mcguire MD Electr onical ly Signed By: Radha Mcguire MD on 023 4:52 PM [email or web address] [facility] [address] [place], [address], 10/06/2022 10:29:44 Result Notes Documentation Provider Name and Address Organization Details Recorded Time Ct, Abdomen + Pelvis, W/o Contrast : [address] [place] [address] Patient Name: SAMUEL TOVAR Patient : 1955 Patient Ordering Provider: AURA ORTIZ EXAM DATE: 10/03/2022 EXAM: CT R/O KIDNEY STONES (A/P W/O) CLINICAL INFORMATION: Suprapubic pain and pressure. TECHNIQUE: Multiple axial CT images of the abdomen and pelvis were obtained without injection of IV contrast using the urinary stone protocol. COMPARISON: None. FINDINGS ON CT ABDOMEN: LOWER THORAX: Lung bases are clear. No obvious cardiac abnormality URINARY TRACT: Mild scarring of the right kidney is seen. 2-5 mm nonobstructing stones are seen in both renal collecting systems. No stone is seen in the ureters or urinary bladder. OTHER UPPER ABDOMINAL ORGANS: Liver, gallbladder, spleen, pancreas, and adrenals are normal within the limits on interpretation imposed by the absence of IV contrast. BOWEL AND MESENTERY: Stomach, small bowel and colon are normal. No mesenteric lymphadenopathy or peritoneal free fluid. RETROPERITONEUM:Limited evaluation due to absence of IV contrast. Aorta shows atherosclerotic calcifications with normal aortic caliber. IVC and branches are normal. No retroperitoneal lymphadenopathy. BODY WALL AND MUSCULOSKELETAL STRUCTURES: Degenerative changes of the lumbar spine are noted. Anterior abdominal wall is normal. FINDINGS ON CT PELVIS: PELVIC CAVITY: Urinary bladder and rectosigmoid are normal. Uterus is not present. Ovaries are not visualized. No pelvic or inguinal lymphadenopathy, mass or fluid. MUSCULOSKELETAL STRUCTURES: Normal. COMBINED IMPRESSION: 1. Nonobstructing bilateral renal stones. 2. 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 3. No other significant abnormality is seen. Interpreted By: Camacho Mcguire MD ORTIZ MD [address] [place] [address], [address], [facility] 10/06/2022 10:29:44 Medical Equipment None Reported. Allergies No known drug allergies Medications Name Sig Start Date Stop Date Status Note LastModified by Organization Details LastModified Time lisinopri l 10 mg-hydroc hlorothia zide 12.5 mg tablet Take 1 tablet every day by oral route. active Not Available Not Available No t Available atorvasta tin active Not Available Not Available Not Available Fish Oil active Not Available Not Avai lable Not Available amlodipin e active Not Available Not Available Not Available metoprolo l succinate 09/28 completed Medicati on Descript ion: metoprol ol succinat e; Route:or al; refills: 0 Not Available Not Available Not Available Crestor 09/28 completed Medicati on Descript ion: rosuvast atin; Route:or al; refills: 0 Not Available Not Available Not Available fenofibra te active Not Available Not Available Not Available aspirin 81 mg capsule Take 1 capsule every day by oral route. active Not Available Not Available No t Available Vitals Date Recorded Body height Body mass index (BMI) Body weight Provider Name and Address Organization Details Last Updated DateTime 09/28/2022 165.1 cm 25.5 kg/m2 31123.63 g Elidia Ha [facility] 09/28/2022 15:55:29 Social History None recorded. Functional Status None recorded. Mental Status None recorded. Family History Nothing Reported. Medical History No medical history recorded. Gynecological HistoryNo gynecological history recorded. Obstetrics History GPAL:G 0 P 0 0 0 0 Past Encounters Encounter ID Performer Location Encounter Start Date Encounter Closed Date Diagnosis/Indication Diagnosis SNOMED-CT Code Diagnosis ICD10 Code Diagnosis Note [id number] AURA ORTIZ MD [facility] [address] [place] [address] 09/28/2022 14:58:06 09/28/2022 16:33:30 Kidney stone 92598502 N20.0 We will contact her with results Health Concerns Section Related Observation LastModified by Organization Detai ls LastModified Time None Recorded Concern Status LastModified by Organization Details LastModified Time None Recorded Advance Directives Directive None Recorded Payers Insurance Date Sequence Insurance Name Policy Number Policy Jerome Covered Member ID Jerome Member ID Guarantor Name 10/03/2022 1 [place] Samuel Tovar [id number] Samuel Tovar 10/04/2022 2 [facility] Samuel Tovar [id number] Samuel Tovar Notes Date Note Type Note Provider Name and Address Organization Details Recorded Time 09/28/2022 text/html Patient is here for initial visit with me. She has a long history of urolithiasis. She has been having some lower abdominal discomfort for about 6 weeks. She had a renal ultrasound at [facility] which reportedly showed a stone. She has had no CT scan. They placed her on Flomax. I suggest we arrange for CT scan for further evaluation. She has had no fever or chills. AURA ORTIZ MD [facility] [place], [address], [facility] 10/06/2022 10:30:37 OBGyn Episode No OBEpisode recorded.
--- OUTSIDE RECORDS SUMMARY | 2024-09-17 07:40 | XMS_ITS | Patient Health Record ---
Author Organization [facility] Address [address] [place] [address] Care Team Providers Care Enterprise Records Analyst Name Role Phone Checo Blandon Primary Care Provider McNees, Melissa Unavailable [phone] Checo Blandon Unavailable Unavailable Migration, Provider Unavailable Unavailable Allergies No Known Allergies Results Component Value Reference Range Notes LIPID PANEL, STANDARD ([id number]) Reviewed date:09/16/2024 02:23:10 PM Interpretation: Performing Lab:[facility] [employer] [facility] [address] [facility] HospitalMyronUhinTG[address] Manuel Montoya Notes/Report: NON-FASTING; NON-FASTING FASTING:YES FASTING: [...] LDL-C. Lux BURGOS et al. DORIS. 2013;310(19): 7611-5261 (http://GeoMetWatch.PúbliKo.3Derm Systems/faq/BEN671) CHOL/HDLC RATIO 4.2 <5.0 (calc) NON HDL CHOLESTEROL 123 <130 mg/dL (calc) For patients with diabetes plus 1 major ASCVD risk factor, treating to a non-HDL-C goal of <100 mg/dL (LDL-C of <70 mg/dL) is considered a therapeutic option. COMPREHENSIVE METABOLIC PANE Carl ([id number]) Reviewed date:09/16/2024 02:23:11 PM Interpretation: Performing Lab:[facility] [employer] [id number] [facility] QueenteSaint [facility], [facility] HospitalButrJL[address] Manuel Montoya Notes/Report: NON-FASTING; NON-FASTING FASTING:YES FASTING: [...] 35 10-35 U/L ALT 42 6-29 U/L LIPID PANEL, STANDARD (7600) Reviewed date:03/11/2024 03:13:31 PM Interpretation: Performing Lab:[facility] [employer] [id number] Queent[address] [facility], [facility] HospitalFdmfNF[address] Manuel Montoya Notes/Report: NON-FASTING; NON-FASTING FASTING:YES FASTING: YES CHOLESTEROL, TOTAL 164 <200 mg/dL HDL CHOLESTEROL 41 > OR = 50 mg/dL TRIGLYCERIDES 175 <150 mg/dL LDL-CHOLESTEROL 96 Reference range: <100 Desirable range <100 mg/dL for primary prevention; <70 mg/dL for patients with CHD or diabetic patients with > or = 2 CHD risk factors. LDL-C is now calculated using the Lux-Cardenas calculation, which is a validated novel method providing better accuracy than the Friedewald equation in the estimation of LDL-C. Lux SS et al. DORIS. 2013;310(19): 0682-1193 (http://education.Graphicly/faq/RPE964) CHOL/HDLC RATIO 4.0 <5.0 (calc) NON HDL CHOLESTEROL 123 <130 mg/dL (calc) For patients with diabetes plus 1 major ASCVD risk factor, treating to a non-HDL-C goal of <100 mg/dL (LDL-C of <70 mg/dL) is considered a therapeutic option. COMPREHENSIVE METABOLIC PANE Carl ([id number]) Reviewed date:03/11/2024 03:13:31 PM Interpretation: Performing Lab:CB, [facility] [address], Myron BainsJykgUI[address] Manuel Montoya Notes/Report: NON-FASTING; NON-FASTING FASTING:YES FASTING: YES GLUCOSE 89 65-99 mg/dL Fasting reference interval UREA NITROGEN (BUN) 26 7-25 mg/dL CREATININE 0.84 0.50-1.05 mg/dL EGFR 75 > OR = 60 mL/min/1.73m2 BUN/CREATININE RATIO 31 6-22 (calc) SODIUM 141 135-146 mmol/L POTASSIUM 4.0 3.5-5.3 mmol/L CHLORIDE 103 98-110 mmol/L CARBON DIOXIDE 29 20-32 mmol/L CALCIUM 10.2 8.6-10.4 mg/dL PROTEIN, TOTAL 7.8 6.1-8.1 g/dL ALBUMIN 4.7 3.6-5.1 g/dL GLOBULIN 3.1 1.9-3.7 g/dL (calc) ALBUMIN/GLOBULIN RATIO 1.5 1.0-2.5 (calc) BILIRUBIN, TOTAL 0.5 0.2-1.2 mg/dL ALKALINE PHOSPHATASE 69 37-153 U/L AST 33 10-35 U/L ALT 42 6-29 U/L Reason For Referral Reason Coronary CTA Diagnosis 1 Family history of co ronary arteriosclerosis (Z82.49) Referral Organization Merged with [facility] Referring Provider First Name Melissa Referring Provider Last Name Prieto Referring Provider Speciality Family Pra ctice Referred Organization [facility] Referred Address [address] [facility] [address] [facility], [place], [place],[address],[place] Referred Provider Specialty Diagnostic R adiology General Notes sent to [facility] to татьяна reyes Elle Quezada 09/13/2024 11:10:07 AM > Referral Priority Routine Medications Medication SIG (Take, Route, Frequency, Duration) Notes Start Date End Date Status Atorvastatin Calcium 80 MG 1 tablet Oral ly at bedtime for 90 days 09/13/2024 Active Lisinopril-hydroCHLOROthiaz bhanu 20-25 MG 1 tab(s) orally once a day for 90 days Active Fenofibrate 160 MG 1 tab(s) orally once a day for 90 days Active Caltrate 600+D Plus Minerals 600 MG-20 MCG 1 TAB(S) ORALLY 2 TIMES A DAY Active amLODIPine Besylate 5 MG 1 tab(s) orally once a day for 90 days Active Aspirin 81 MG 1 TAB(S) ORALLY ONCE A DAY Active Fish Oil 1200 MG 2 cap(s) orally daily Active Multivitamin MULTIPLE VITAMINS 1 CAP(S) ORALLY ONCE A DAY for 30 DAY(S) Active valACYclovir HCl 1 GM 2 tab(s) at onset of symptoms and take 2 tablets 12 hours later (no more than 4 tabs per outbreak) orally for 30 day(s) Active Immunizations Vaccine Route Administration Date Status Comme nts SHINGRIX Unknown 02/27/2020 Administered SHINGRIX Unknown 02/27/2020 Administered SHINGRIX Unknown 05/05/2020 Administered Prevnar PCV-13 (Pneumococcal conjugate 13) IM Intramuscular 03/11/2021 Administered Pneumovax 23 IM Intramuscular 01/31/2020 Administered Fluzone High Dose IM Intramuscular 01/31/2020 Administered Fluzone High Dose IM Intramuscular 12/31/2021 Administered Fluzone High Dose IM Intramuscular 01/27/2023 Administered Fluzone High Dose IM Intramuscular 02/05/2024 Administered FLUZONE 6MO - OLDER IM Intramuscular 01/15/2021 Administer ed Covid Moderna IM Intramuscular 05/27/2020 Administered Covid Moderna IM Intramuscular 06/24/2020 Administered Boostrix IM Intramuscular 03/07/2019 Administered Social History Tobacco Use: Social History Observation Description Date Details (start date - stop date) Never Smoker NA - NA Smoking: Question Answer Notes Are you a: nonsmoker Problems Problem Type SNOMED Code ICD Code Onset Dates Problem Status W/U Status Risk Notes Problem 298471494 Overweight (E66.3) Active confirmed Problem 28524288 Hypercalcemia (E83.52) Active confirmed Problem 527068002 Hyperlipemia, 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 confirmed Problem 76141797 Hypertension, essential (I10) Active confirmed Vital Signs Heart Rate 74 /min 09/13/2024 Temperature 97.6 degrees Fahrenheit 09/13/2024 Blood pressure diastolic 84 mm Hg 09/13/2024 Height 65 in 09/13/2024 Blood pressure systolic 122 mm Hg 09/13/2024 Weight 162.8 lbs 09/13/2024 BMI 27.09 kg/m2 09/13/2024 Encounters Encounter Location Date Provider Diagnosis [facility] APRYL [address] [place], [place] [address] 06/29/2024 Provider Migration Merged with [facility] [address] [address] 02/05/2024 Melissa Moreau Immunization(s) administered Z23 Merged with [facility] [address] [address] 03/08/2024 Melissa Moreau Hyperlipemia, idiopa thic familial E78.5 ; Encounter for Medicare annual wellness exam Z00.00 ; Hypertension, essential I10 and Body mass index [BMI] 27.0-27.9, adult Z68.27 Merged with [facility] [address] [address] 09/13/2024 Melissa Moreau Hyperlipemia, idiopa thic familial E78.5 ; Hypertension, essential I10 ; Body mass index [BMI] 27.0-27.9, adult Z68.27 ; Family history of coronary arteriosclerosis Z82.49 and At risk for heart disease Z91.89 Merged with [facility] [address] [address] 05/03/2024 Melissa Moreau Assessments Encounter Date Diagnosis (ICD Code) Assessment Notes Treatment Notes Treatment Clinical Notes Section Notes 03/08/2024 Hyperlipemia, idiopathic familial (ICD-10 - E78.5) Tolerating statin with no myalgias, Will check fasting lipid panel today and treat as indicated 09/13/2024 Hyperlipemia, 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 Will check fasting lipid panel today and treat as indicated 09/13/2024 Hypertension, essential (ICD-10 - I10) Blood pressure at goal. No changes made today 03/08/2024 Encounter for Medicare annual wellness exam (ICD-10 - Z00.00) Mammogram UTD. Colonoscopy UTD. No further paps needed. Immunizations utd. Routine labs drawn today. Not a smoker. BMI is acceptable 02/05/2024 Immunization(s) administered (ICD-10 - Z23) 09/13/2024 Body mass index [BMI] 27.0-27.9, adult (ICD-10 - Z68.27) BMI stable and acceptable 03/08/2024 Hypertension, essential (ICD-10 - I10) Blood pressure at goal. No changes made today 09/13/2024 Family history of coronary arteriosclerosis (ICD-10 - Z82.49) Parents were smokers, and she has never smoked. Reassurance provided. Does not have any exertional symptoms. Maximize LDL control. Continue aspirin. Will attempt to PA CCTA but explained insurance may not cover. 03/08/2024 Body mass index [BMI] 27.0-27.9, adult (ICD-10 - Z68.27) 09/13/2024 At risk for heart disease (ICD-10 - Z91.89) HTN HLD Family history Plan Of Treatment Pending Test Test Name Order Date C-CMP 05/15/2020 C-LIPID PANEL 05/15/2020 COMPREHENSIVE METABOLIC PANEL ([id number]) CTA : Coronary 09/13/2024 Next Appt Details Provider Name:Melissa Mcfarlane, 02/28/2025 09:45:00 AM, [address], [address], Insurance Providers Payer Name Payer Address Payer Phone Subscriber Number Group Number Insured Name Patient Relationship to Insured Coverage Start Date Coverage End Date [place] [address] [place] [phone] [id number] Devi Tovar Self - patient is the insured [facility] [employer] [facility] [place] [address] [phone] [id number] Tovar , Devi Self - patient is the insured Medications Administered Medication Instructions Date of Administration Dosage Notes Triamcinolone Acetonide 40mg Injection 07/31/2019 1 mL Medical (General) History Medical History History ICD Code HTN HLD skin ca Surgical History Surgery Date(Month/Year) hysterectomy appendectomy breast reduction heel spurs left hip fx repair left wrist fx repair right hand lasik x 3 2020 c-scope- repeat in 5 years mammogram 04/2020 normal cataract removal Hospitalization History Reason Date(Month/Year) above
--- NOTE | 2024-09-17 07:45 | CT_ITS ---
APPROVED REPORT Factorer: CLINICAL INDICATION Chest Pain TECHNIQUE Image Acquisition: A 128 slice MDCT scanner (BidThatProjecta View) was used for data acquisition. A noncontrast coronary calcium scan was performed. A CT attenuation threshold of 130 Hounsfield units (HU) was used for the detection of calcium in contiguous voxels of 1 sq mm in area to be counted as individual lesions. Bolus tracking in the ascending aorta with a threshold of 180 HU was performed. Immediately afterwards, ECG synchronized cardiac CT was then performed from the cardiac base to apex using retrospective gating with ECG tube current modulation. A total of 85 mL of Isovue 370 mg/mL contrast medium was administered at 5 mL/sec followed by a saline flush using a biphasic injection protocol. A tube voltage of 120 KVp was used. The patient received the following medications prior to the cardiac CT. 50 mg of oral metoprolol 15 mg of oral ivabradine 0.8 mg of sublingual nitroglycerin The average heart rate at the time of acquisition was 52 bpm and regular. Image Reconstruction Transaxial images were reconstructed at 0.67 mm slide thickness. Data was reviewed interactively on an advanced workstation capable of 2 and 3-dimensional displays in all conventional reconstruction formats, including multiplanar reformations, maximum intensity projections, curved multiplanar reformations, and volume rendered reconstructions. When applicable, selected routine images describing the relevant coronary anatomy and pathology were saved and sent to PACS. Complications None Technical Quality Overall image quality was good. Coronary artery opacification was adequate. Total DLP (Dose-Length Product) is 1325.3 mGy-cm. The reported value represents the total of one or more individual components during the CT acquisition of this date and at this time, and as such, the same value may appear in more than one CT report depending on the interpreting/reporting physicians. COMPARISON None FINDINGS CT Coronary Calcium Scoring LMA (Left Main Artery) = 20 LAD (Left Anterior Descending) = 34 LCX (Left Coronary Circumflex) = 0 RCA (Right Coronary Artery) = 0 Total Calcium Score = 54 using the AJ-130 method. The observed calcium score of 54 is at 64th percentile for subjects of the same age, sex, and race/ethnicity. The interpretation of the calcium heart score is based on the following continuum*: 0 = no calcified plaque detected (risk of coronary artery disease is very low ??? less than 5%) 1-10 = calcium detected in extremely minimal levels (risk of coronary diseases is still low ??? less than 10%) 11-100 = mild levels of plaque detected with certainty (mild or minimal narrowing of heart arteries is likely) 101-400 = definite,at least moderate levels of plaque detected (relatively high risk of a heart attack within 3-5 years) >401-999 = extensive levels of plaque detected (high risk of heart attack, high levels of vascular disease are present, high likelihood of at least one significant coronary narrowing) *The calcium heart score quantifies the burden of coronary calcification/plaque in the coronary arteries. The calcium heart score is not able to evaluate the presence or burden of non-calcified (i.e. soft) plaque. There is mild identifiable calcification in the aortic valve. Coronary CT Angiography The coronary arterial system is right dominant. Quantitative Stenosis Grading: Left Main (LM): The left main originates normally from the left sinus of Valsalva. The LM bifurcates into the left anterior descending artery and left circumflex artery. There is calcified plaque along the ostial left main segment, with no evidence of luminal stenosis. Left Anterior Descending (LAD) and Diagonal Branches: The LAD gives off 2 diagonal branch(es). There is mixed calcified/noncalcified plaque along the proximal LAD segment with < 25% stenosis. There is no evidence of LAD-myocardial bridge. Left Circumflex (LCX) and Obtuse Marginals (OM): The LCX gives off 1 Obtuse Marginal (OM) branch(es). The LCX and its branches are patent with no evidence of atherosclerosis. Right Coronary Artery (RCA): The RCA originates normally from the right sinus of Valsalva. The RCA gives off a posterior descending artery (PDA) and posterolateral (PL) branches. The RCA and its branches are patent with no evidence of atherosclerosis. Non-Coronary Cardiac Findings: Analysis of the left ventricular (LV) structure and function was performed after 3-D reconstruction of the LV from axial images, with user-corrected automatic contouring for assessment of LV volumes and user-defined reconstruction from oblique planes for measurement of 3-D cardiac structure and function. -The left ventricle systolic function is normal. -There is no left atrial appendage filling defect. Two right pulmonary veins and two left pulmonary veins drain normally into the left atrium. -No pericardial thickening or calcification. -Central and branch pulmonary arteries in the [id number] are unremarkable. -Thoracic aorta within the visualized thoracic aortic-branches in the [id number] is unremarkable. Extracardiac Structures No significant extra-cardiac findings. Note, however, that this study is focused on the cardiac findings. IMPRESSION -Presence of coronary calcification with an Agatston score = 54 using the AJ-130 method. -The observed calcium score of 54 is at 64th percentile for subjects of the same age, sex, and race/ethnicity. -No evidence of significant flow-limiting atherosclerosis of the coronary arteries. -CAD-RADS 1. Management recommendations per ACC/AHA guidelines*, as clinically appropriate. *Recommendations: CAD RADS 0: Reassurance. Consider non-atherosclerotic causes of chest pain. CAD RADS 1: Consider non-atherosclerotic causes of chest pain. Consider preventive therapy and risk factor modification. CAD RADS 2: Consider non-atherosclerotic causes of chest pain. Consider preventive therapy and risk factor modification, particularly for patients with nonobstructive plaque in multiple segments. CAD RADS 3: Consider further functional testing. Consider symptom-guided anti-ischemic and preventive pharmacotherapy as well as risk factor modification per published guideline statements. CAD RADS 4A: Consider further functional testing or invasive coronary angiography with revascularization per published guideline statements. Consider symptom-guided anti-ischemic and preventive pharmacotherapy as well as risk factor modification per published guideline statements. CAD RADS 4B: Invasive coronary angiography recommended with revascularization per published guideline statements. Consider symptom-guided anti-ischemic and preventive pharmacotherapy as well as risk factor modification per published guideline statements. CAD RADS 5: Consider invasive angiography and/or viability assessment with revascularization per published guideline statements. Consider symptom-guided anti-ischemic and preventive pharmacotherapy as well as risk factor modification per published guideline statements. CRITICAL RESULT None COMMUNICATION Per this written report The coronary and cardiac findings of this CCTA were reviewed, reported, and signed by Abelardo Tejeda MD (Band Builder) Conclusion Electronically signed by : Sara Tejeda MD 09/17/2024 13:59:03
[2024-09-17 08:00] VITALS: BMI 26.9
[2024-09-17 08:02] VITALS: BP 135/75; PULSE 72; RESP 16; O2SAT 97
[2024-09-17] MEDS: IVABRADINE HCL 7.5MG TABLET PO (08:08)
[2024-09-17] MEDS: METOPROLOL TARTRATE 50MG TABLET PO (08:08)
[2024-09-17 08:26] LABS: Chloride 100 mmol/L (98-107); Sodium 140 mmol/L (136-145)
[2024-09-17 08:27] LABS: Potassium 3.4 mmoL/L (3.5-5.1)
[2024-09-17 08:29] LABS: Blood Urea Nitrogen 26 mg/dl (7-17); Creatinine Clearance Estimated 61 mL/min (50-200); Estimated Glomerular Filt Rate 71 ml/min (>60); GFR (African American) 86 ML/MIN (>60)
[2024-09-17 08:30] LABS: Anion Gap 13.4 mEq/L (5-15); Calcium 9.7 mg/dl (8.4-10.2); Carbon Dioxide 30 mmol/L (22.0-30.0); Glucose 106 mg/dl (74-100)
[2024-09-17 09:09] VITALS: BP 131/69; PULSE 61; RESP 16; O2SAT 97
[2024-09-17] MEDS: NITROGLYCERIN 0.4MG SL TABLET SL (09:09)
[2024-09-17 09:11] VITALS: BP 120/67; PULSE 61; RESP 16; O2SAT 97
[2024-09-17] MEDS: IOPAMIDOL-370 (76%);100ML BOTTLE 85 ML IV (09:19)
[2024-09-17] MEDS: SODIUM CHLORIDE 0.9% 10ML SYR (RAD ONLY) 10 ML IV (09:19)
[2024-09-17] MEDS: 0.9 % SODIUM CHLORIDE 50 ML VIAL IV (09:19)
[2024-09-17 09:24] VITALS: BP 117/54; PULSE 59; RESP 16; O2SAT 95
== END 2024-09-17 09:26 | disposition home or self-care (01) ==
PROVIDERS: Internal Medicine; PCP Nurse Practitioner Family; Visit Provider Nurse Practitioner Family
DX: I25.10 Atherosclerotic heart disease of native coronary artery without angina pectoris (principal); Z82.49 Family history of ischemic heart disease and other diseases of the circulatory system
CPT/HCPCS: 75574; 80048; Q9967